=== PATIENT | female | born 1945 ===

== ENCOUNTER → 2018-12-11 | Outpatient (CLI) | payer OTHER, SELFPAY ==
[~2018-12-11] MED LIST: ASPI81CH PO; CALCA400CH PO; CALCAVITD; CHOL10002 PO; CO Q-10100 MG PO; Calcium 600 MG1 EACH PO; Coq-1030 MG PO; DOCU100 PO; Esgic Tablet1 EACH PO; HYDCHL12.5 PO; HYDCHL25 PO; IBUP600 PO; METO25ER PO; Mupirocin22 GM TOP; OMEPRAZOLE20 MG PO; Percocet 5-3251 EACH PO; TURMERIC 450-51 EACH PO; VITAMIN D31000 UNI2 PO
[2018-12-11 14:17] LABS: BASOPHILS ABSOLUTE AUTO 0.09 K/mm3 (0.00-0.23); BASOPHILS PERCENT AUTO 1 % (0-2); EOSINOPHILS PERCENT AUTO 2 % (0-6); Hematocrit 41.3 % (33.0-51.0); Hemoglobin 13.6 g/dL (11.5-16.0); IMMATURE GRAN ABSOLUTE AUTO 0.02 K/mm3 (0.00-0.10); IMMATURE GRAN PERCENT AUTO 0 % (0-1); LYMPHOCYTES PERCENT AUTO 23 % (21-46); MONOCYTES ABSOLUTE AUTO 0.92 K/mm3 (0.16-1.47); MONOCYTES PERCENT AUTO 11 % (4-13); Mean Corpuscular HGB 29.8 pg (26.0-34.0); Mean Corpuscular HGB Conc 32.9 g/dL (31.5-36.5); Mean Corpuscular Volume 90 fL (80-100); Mean Platelet Volume 11.2 fL (9.1-12.4); NEUTROPHILS PERCENT AUTO 62 % (41-73); Platelet Count 274 K/mm3 (150-400); RDW Coefficient Variation 14.1 % (11.7-14.2); RDW Standard Deviation 46.9 fL (35.1-46.3); Red Blood Cell Count 4.57 M/mm3 (3.80-5.20); White Blood Cell Count 8.53 K/mm3 (4.00-11.30)
== END | disposition home or self-care (01) ==
LOC: LAB EV 14:11 → LAB SHORT 14:11
PROVIDERS: Family Medicine
DX: K62.5 Hemorrhage of anus and rectum (principal)
CPT/HCPCS: 85025

== ENCOUNTER → 2018-12-16 | Outpatient (CLI) | payer OTHER ==
[2018-12-16 13:44] LABS: BASOPHILS ABSOLUTE AUTO 0.07 K/mm3 (0.00-0.23); BASOPHILS PERCENT AUTO 1 % (0-2); EOSINOPHILS ABSOLUTE AUTO 0.16 K/mm3 (0.00-0.68); EOSINOPHILS PERCENT AUTO 2 % (0-6); Hematocrit 33.1 % (33.0-51.0); Hemoglobin 11.2 g/dL (11.5-16.0); IMMATURE GRAN ABSOLUTE AUTO 0.03 K/mm3 (0.00-0.10); IMMATURE GRAN PERCENT AUTO 0 % (0-1); LYMPHOCYTES PERCENT AUTO 29 % (21-46); MONOCYTES ABSOLUTE AUTO 0.81 K/mm3 (0.16-1.47); MONOCYTES PERCENT AUTO 10 % (4-13); Mean Corpuscular HGB 30.2 pg (26.0-34.0); Mean Corpuscular HGB Conc 33.8 g/dL (31.5-36.5); Mean Corpuscular Volume 89 fL (80-100); Mean Platelet Volume 11.2 fL (9.1-12.4); NEUTROPHILS ABSOLUTE AUTO 4.88 K/mm3 (1.96-9.15); NEUTROPHILS PERCENT AUTO 59 % (41-73); Platelet Count 262 K/mm3 (150-400); RDW Coefficient Variation 14.6 % (11.7-14.2); RDW Standard Deviation 46.7 fL (35.1-46.3); Red Blood Cell Count 3.71 M/mm3 (3.80-5.20); White Blood Cell Count 8.35 K/mm3 (4.00-11.30)
[2018-12-16 13:58] LABS: Alanine Aminotransfer (ALT/SGP 19 U/L (12-78); Albumin, Blood 3.5 g/dL (3.4-5.0); Albumin/Globulin Ratio 1.2 (0.8-1.8); Alk Phos 85 U/L (40-126); Anion Gap 10 mmol/L (6-16); Aspartate Aminotrans (AST/SGOT 18 U/L (12-37); Bilirubin, Total 1.1 mg/dL (0.1-1.0); Blood Urea Nitrogen 27 mg/dL (8-24); Bun/Creatinine Ratio 30.7 (12.0-20.0); CO2, Blood 25 mmol/L (21-32); Calcium, Blood 8.6 mg/dL (8.5-10.1); Chloride, Blood 108 mmol/L (98-108); Creatinine, Blood 0.88 mg/dL (0.40-1.00); Glomerular Filtration Rate >60 (60-); Glucose, Blood 90 mg/dL (70-99); Potassium, Blood 3.4 mmol/L (3.5-5.5); Sodium, Blood 143 mmol/L (136-145); Total Protein, Blood 6.5 g/dL (6.4-8.2); Troponin I 0.019 ng/mL (0.000-0.040)
== END | disposition home or self-care (01) ==
LOC: LAB EV 13:38 → LAB SHORT 13:38
PROVIDERS: Physician Assistant
DX: R07.89 Other chest pain (principal); K62.5 Hemorrhage of anus and rectum
CPT/HCPCS: 80053; 83690; 84484; 85025

== ENCOUNTER → 2018-12-17 | Outpatient (CLI) | payer OTHER ==
[2018-12-17 11:01] LABS: BASOPHILS ABSOLUTE AUTO 0.07 K/mm3 (0.00-0.23); BASOPHILS PERCENT AUTO 1 % (0-2); EOSINOPHILS ABSOLUTE AUTO 0.21 K/mm3 (0.00-0.68); EOSINOPHILS PERCENT AUTO 3 % (0-6); Hematocrit 34.3 % (33.0-51.0); Hemoglobin 11.3 g/dL (11.5-16.0); IMMATURE GRAN ABSOLUTE AUTO 0.04 K/mm3 (0.00-0.10); IMMATURE GRAN PERCENT AUTO 1 % (0-1); LYMPHOCYTES ABSOLUTE AUTO 1.74 K/mm3 (0.84-5.20); LYMPHOCYTES PERCENT AUTO 24 % (21-46); MONOCYTES ABSOLUTE AUTO 0.79 K/mm3 (0.16-1.47); MONOCYTES PERCENT AUTO 11 % (4-13); Mean Corpuscular HGB 29.9 pg (26.0-34.0); Mean Corpuscular HGB Conc 32.9 g/dL (31.5-36.5); Mean Corpuscular Volume 91 fL (80-100); Mean Platelet Volume 11.4 fL (9.1-12.4); NEUTROPHILS ABSOLUTE AUTO 4.46 K/mm3 (1.96-9.15); NEUTROPHILS PERCENT AUTO 61 % (41-73); Platelet Count 276 K/mm3 (150-400); RDW Coefficient Variation 14.6 % (11.7-14.2); RDW Standard Deviation 48.6 fL (35.1-46.3); Red Blood Cell Count 3.78 M/mm3 (3.80-5.20); White Blood Cell Count 7.31 K/mm3 (4.00-11.30)
== END | disposition home or self-care (01) ==
LOC: LAB EV 10:55 → LAB SHORT 10:55
PROVIDERS: Physician Assistant
DX: K92.2 Gastrointestinal hemorrhage, unspecified (principal)
CPT/HCPCS: 85025

== ENCOUNTER → 2018-12-20 | Outpatient (CLI) | payer OTHER ==
[2018-12-20 16:33] LABS: BASOPHILS ABSOLUTE AUTO 0.07 K/mm3 (0.00-0.23); BASOPHILS PERCENT AUTO 1 % (0-2); EOSINOPHILS ABSOLUTE AUTO 0.21 K/mm3 (0.00-0.68); EOSINOPHILS PERCENT AUTO 2 % (0-6); Hematocrit 32.8 % (33.0-51.0); Hemoglobin 11.1 g/dL (11.5-16.0); IMMATURE GRAN ABSOLUTE AUTO 0.02 K/mm3 (0.00-0.10); IMMATURE GRAN PERCENT AUTO 0 % (0-1); LYMPHOCYTES ABSOLUTE AUTO 2.29 K/mm3 (0.84-5.20); LYMPHOCYTES PERCENT AUTO 27 % (21-46); MONOCYTES ABSOLUTE AUTO 0.86 K/mm3 (0.16-1.47); MONOCYTES PERCENT AUTO 10 % (4-13); Mean Corpuscular HGB 30.3 pg (26.0-34.0); Mean Corpuscular HGB Conc 33.8 g/dL (31.5-36.5); Mean Corpuscular Volume 90 fL (80-100); Mean Platelet Volume 10.9 fL (9.1-12.4); NEUTROPHILS ABSOLUTE AUTO 5.18 K/mm3 (1.96-9.15); NEUTROPHILS PERCENT AUTO 60 % (41-73); Platelet Count 294 K/mm3 (150-400); RDW Coefficient Variation 14.6 % (11.7-14.2); RDW Standard Deviation 47.3 fL (35.1-46.3); Red Blood Cell Count 3.66 M/mm3 (3.80-5.20); White Blood Cell Count 8.63 K/mm3 (4.00-11.30)
== END | disposition home or self-care (01) ==
LOC: LAB EV 16:29 → LAB SHORT 16:29
PROVIDERS: Physician Assistant
DX: K92.2 Gastrointestinal hemorrhage, unspecified (principal)
CPT/HCPCS: 85025

== ENCOUNTER 2019-01-16 10:24 | Day surgery (SDC) | payer OTHER ==
[~2019-01-16] VITALS: Ht 165.1 cm; Wt 74.9 kg
== END 2019-01-16 12:35 | disposition home or self-care (01) ==
LOC: ORSCSDS 10:24
PROVIDERS: Surgery
PROC: 0DJD8ZZ Inspection of Lower Intestinal Tract, Via Natural or Artificial Opening Endoscopic (ICD-10-PCS; principal; 2019-01-16 12:00)
DX: K62.5 Hemorrhage of anus and rectum (principal); R10.84 Generalized abdominal pain; K57.30 Diverticulosis of large intestine without perforation or abscess without bleeding; K64.8 Other hemorrhoids; K44.9 Diaphragmatic hernia without obstruction or gangrene; I10 Essential (primary) hypertension; I25.10 Atherosclerotic heart disease of native coronary artery without angina pectoris; Z79.899 Other long term (current) drug therapy
CPT/HCPCS: J2405; J2704; J7120

== ENCOUNTER → 2021-06-09 | Outpatient (CLI) | payer OTHER | LOC: LAB SHORT 15:28 | DX: R30.9 Painful micturition, unspecified (principal) | CPT/HCPCS: 87086 ==

== ENCOUNTER 2022-01-18 15:33 | Emergency (ER) | payer OTHER ==
[~2022-01-18] VITALS: Ht 165.1 cm; Wt 78.9 kg
== END 2022-01-18 17:00 | disposition home or self-care (01) ==
LOC: ER 15:33
DX: S29.011A Strain of muscle and tendon of front wall of thorax, initial encounter (principal); I10 Essential (primary) hypertension; Z91.040 Latex allergy status; Z88.2 Allergy status to sulfonamides; Z79.899 Other long term (current) drug therapy; X50.9XXA Other and unspecified overexertion or strenuous movements or postures, initial encounter
CPT/HCPCS: 71046; 99284-25

== ENCOUNTER 2022-08-17 08:54 | Day surgery (SDC) | payer OTHER ==
[~2022-08-17] VITALS: Ht 165.1 cm; Wt 77.3 kg
[2022-08-17] VITALS (12 sets, daily range): BP systolic 111–202; BP diastolic 79–101
[~2022-08-17 08:54] MED LIST changes: +CARV6.25 PO; +FLUO10 PO; +LOSA50 PO
--- NOTE | 2022-08-17 10:06 | NUR ---
Ambulatory in Day Surgery History, Chart, Medications and Allergies reviewed before start of procedure. Lungs clear T/O to Auscultation. Patient confirms NPO status and agrees with scheduled surgery. Pre-Op teaching done. Pt verbalizes understanding. Patient States Post-Procedure ride home has been arranged. PT BELONGINGS PLACED UNDERNEATH [facility] FOR SAFEKEEPING.
--- NOTE | 2022-08-17 10:55 | NUR ---
08/17/22 1055 Ginny Rajput [address] KWON, SEE ANESTHESIA RECORDS.
--- NOTE | 2022-08-17 12:24 | NUR ---
DR KWON AWARE OF ELEVATED BP HE STATES ONCE PT AWAKE AND TALKING CALL HIM IF IT CONTINUES TO BE ELEVATED ABOVE HER BASELINE
--- NOTE | 2022-08-17 12:35 | NUR ---
DR KWON AWARE OF BP AND HE WOULD LIKE HER TO TAKE HER BP MEDS WHEN SHE IS HOME PT HAS NO COMPLAINTS
--- NOTE | 2022-08-17 14:17 | NUR ---
Patient up to Ambulate independently. Gait steady. Discharge instructions reviewed with patient. Patient verbalizes understanding. Copy given to patient to take home. Discharged via wheelchair to private car for ride home WITH FRIEND
== END 2022-08-18 22:38 | disposition home or self-care (01) ==
LOC: ORSCMMR 08:54 → ORD 10:45 → ORSCMMR 08-18 22:38
PROVIDERS: Surgery
PROC: 0DBK8ZX Excision of Ascending Colon, Via Natural or Artificial Opening Endoscopic, Diagnostic (ICD-10-PCS; principal; 2022-08-17 10:45)
PROC: 06BY0ZC Excision of Hemorrhoidal Plexus, Open Approach (ICD-10-PCS; principal; 2022-08-17 10:45)
DX: K62.5 Hemorrhage of anus and rectum (principal); K64.2 Third degree hemorrhoids; D12.2 Benign neoplasm of ascending colon; K57.30 Diverticulosis of large intestine without perforation or abscess without bleeding; I10 Essential (primary) hypertension; Z79.899 Other long term (current) drug therapy
CPT/HCPCS: 88304; 88305; A9270; J1100; J1885; J2405; J2704; J3010; J7120

== ENCOUNTER 2025-01-27 15:44 | Inpatient (IN) | payer OTHER ==
[~2025-01-27] VITALS: Ht 165.1 cm; Wt 80.6 kg
[2025-01-27] VITALS (12 sets, daily range): BP systolic 122–143; BP diastolic 62–129
[2025-01-27 16:21] LABS: BASOPHILS ABSOLUTE AUTO 0.11 K/mm3 (0.00-0.23); BASOPHILS PERCENT AUTO 1 % (0-2); EOSINOPHILS ABSOLUTE AUTO 0.24 K/mm3 (0.00-0.68); EOSINOPHILS PERCENT AUTO 3 % (0-6); Hematocrit 40.7 % (33.0-51.0); Hemoglobin 13.7 g/dL (11.5-16.0); IMMATURE GRAN ABSOLUTE AUTO 0.04 K/mm3 (0.00-0.10); IMMATURE GRAN PERCENT AUTO 0 % (0-1); LYMPHOCYTES ABSOLUTE AUTO 2.12 K/mm3 (0.84-5.20); LYMPHOCYTES PERCENT AUTO 22 % (21-46); MONOCYTES ABSOLUTE AUTO 0.99 K/mm3 (0.16-1.47); MONOCYTES PERCENT AUTO 10 % (4-13); Mean Corpuscular HGB Conc 33.7 g/dL (31.5-36.5); Mean Corpuscular Volume 85 fL (80-100); NEUTROPHILS ABSOLUTE AUTO 6.21 K/mm3 (1.96-9.15); NEUTROPHILS PERCENT AUTO 64 % (41-73); NRBC ABSOLUTE 0.00 K/mm3 (0.00-0.02); NRBC Auto 0.0 /100 WBC (0.0-0.2); Platelet Count 329 K/mm3 (150-400); RDW Coefficient Variation 15.1 % (11.7-14.2); RDW Standard Deviation 46.9 fL (35.1-46.3)
[2025-01-27 16:42] LABS: Alanine Aminotransfer (ALT/SGP 18.0 U/L (12-78); Albumin, Blood 3.5 g/dL (3.4-5.0); Albumin/Globulin Ratio 1.0 (0.8-1.8); Anion Gap 7.0 mmol/L (3-11); Aspartate Aminotrans (AST/SGOT 15.0 U/L (12-37); Bilirubin, Total 1.0 mg/dL (0.1-1.0); Blood Urea Nitrogen 17.0 mg/dL (8-24); CO2, Blood 28.0 mmol/L (21-32); Calcium, Blood 8.9 mg/dL (8.5-10.1); Chloride, Blood 106.0 mmol/L (98-108); Creatinine, Blood 0.82 mg/dL (0.40-1.00); Globulin, Blood 3.4 g/dL (2.2-4.0); Glucose, Blood 114.0 mg/dL (70-99); Potassium, Blood 3.9 mmol/L (3.5-5.5); Sodium, Blood 137.0 mmol/L (136-145); Total Protein, Blood 6.9 g/dL (6.4-8.2)
[2025-01-27] MEDS ORDERED: NiCARdipine HCL 50 MG in NS 250 ML IV SCH (18:35)
[2025-01-27 19:16] LABS: Prothrombin Time Results 11.9 Sec (9.7-11.5)
[2025-01-27] MEDS ORDERED: Labetalol HCL 5 MG/ML 4ML Injection (Single Dose) IV PRN (21:10)
[2025-01-28] VITALS (47 sets, daily range): BP systolic 104–156; BP diastolic 46–96
[2025-01-28 03:44] LABS: BASOPHILS ABSOLUTE AUTO 0.11 K/mm3 (0.00-0.23); BASOPHILS PERCENT AUTO 1 % (0-2); EOSINOPHILS ABSOLUTE AUTO 0.31 K/mm3 (0.00-0.68); EOSINOPHILS PERCENT AUTO 3 % (0-6); Hematocrit 43.3 % (33.0-51.0); Hemoglobin 14.2 g/dL (11.5-16.0); IMMATURE GRAN ABSOLUTE AUTO 0.07 K/mm3 (0.00-0.10); IMMATURE GRAN PERCENT AUTO 1 % (0-1); LYMPHOCYTES ABSOLUTE AUTO 2.27 K/mm3 (0.84-5.20); LYMPHOCYTES PERCENT AUTO 18 % (21-46); MONOCYTES ABSOLUTE AUTO 1.43 K/mm3 (0.16-1.47); MONOCYTES PERCENT AUTO 11 % (4-13); Mean Corpuscular HGB Conc 32.8 g/dL (31.5-36.5); Mean Corpuscular Volume 86 fL (80-100); NEUTROPHILS ABSOLUTE AUTO 8.45 K/mm3 (1.96-9.15); NEUTROPHILS PERCENT AUTO 67 % (41-73); NRBC ABSOLUTE 0.00 K/mm3 (0.00-0.02); NRBC Auto 0.0 /100 WBC (0.0-0.2); Platelet Count 345 K/mm3 (150-400); RDW Coefficient Variation 15.4 % (11.7-14.2); RDW Standard Deviation 48.7 fL (35.1-46.3)
[2025-01-28 04:09] LABS: Alanine Aminotransfer (ALT/SGP 18.0 U/L (12-78); Albumin, Blood 3.5 g/dL (3.4-5.0); Albumin/Globulin Ratio 1.1 (0.8-1.8); Anion Gap 10.0 mmol/L (3-11); Aspartate Aminotrans (AST/SGOT 13.0 U/L (12-37); Bilirubin, Total 0.9 mg/dL (0.1-1.0); Blood Urea Nitrogen 23.0 mg/dL (8-24); CO2, Blood 25.0 mmol/L (21-32); Calcium, Blood 9.0 mg/dL (8.5-10.1); Chloride, Blood 108.0 mmol/L (98-108); Creatinine, Blood 0.82 mg/dL (0.40-1.00); Globulin, Blood 3.1 g/dL (2.2-4.0); Glucose, Blood 138.0 mg/dL (70-99); Potassium, Blood 3.7 mmol/L (3.5-5.5); Sodium, Blood 139.0 mmol/L (136-145); Total Protein, Blood 6.6 g/dL (6.4-8.2)
--- NOTE | 2025-01-28 05:56 | NUR ---
SHIFT SUMMARY PT HAS TOLERATED NIGHT WELL SINCE BEING ADMITTED TO ICU WITH NO SIGNIFICANT EVENTS OVERNIGHT. PT REMAINS ALERT AND ORIENTED X 4 AND ABLE TO MOVE ALL EXTREMETIES. PT IS CURRENTLY RESTING COMFORTABLY IN ROOM. CALL LIGHT WITHIN REACH. WILL CONTINUE TO MONITOR UNTIL REPORT PASSED TO DAY SHIFT TEAM.
--- NOTE | 2025-01-28 14:59 | NUR ---
PT A/O X4, NEURO INTACT EXCEPT GAIT IS STILL SLIGHTLY WEAK. DIFFICULT TO PIN POINT WHAT IS WEAK WITH GAIT BECAUSE SHE IS ABLE TO MOVE BOTH EXTREMITIES ON COMMAND AND THEY ARE EQUAL. USING CALL LIGHT APPROPRIATELY. BP HAS BEEN WELL CONTROLED WITH PO MEDS. HAS BEEN OFF NICARDIPINE GTT SINCE 0800. EATING MEALS WITHOUT DIFFICULTY. NO SIGN OF DISTRESS. REPORT GIVEN TO FREDDY PINZON WHO WILL ASSUME CARE.
--- NOTE | 2025-01-28 20:40 | NUR ---
ASSUMPTION OF CARE/TRANSFER: ASSUMED CARE AT START OF SHIFT (1899). REPORT RECEIVED FROM DAY SHIFT RN. PT OS DOING WELL AMD RESTING IN BED. PT IS ALERT AND FOLLOWING COMMANDS. PT DENIES ANY PAIN, CP, OR SOB AT THIS TIME. LUNG SOUNDS ARE CLEAR AND EQUAL BILATERALLY, ON RA WITH SPO2 >95%. SINUS RYTHM, SBP: 120-130'S MAP >65 HR: 70'S. IV: PERIPHERAL IN LAC AND L WRIST. PT IS ABLE TO AMBULATE AND USE BEDSIDE COMMODE VIA 1-PERSON ASSIST. LINES AND CORDS PLACED OUT OF REACH, CALL LIGHT PLACED WITHIN REACH. PT TRANSFERED FROM ICU 1 TO PCU 16 @ 2039. REPORT GIVEN TO QA REVIEWER. PT TRANSPORTED TO PCU VIA WHEEL CHAIR, PT TRANSFERRED TO PCU BED VIA STAND AND PIVOT. ALL PT BELONGS, MEDICATIONS, AND CHART WENT WITH PT TO PCU.
[2025-01-29] VITALS (10 sets, daily range): BP systolic 142–197; BP diastolic 70–98
[2025-01-29 03:57] LABS: BASOPHILS ABSOLUTE AUTO 0.07 K/mm3 (0.00-0.23); BASOPHILS PERCENT AUTO 1 % (0-2); EOSINOPHILS ABSOLUTE AUTO 0.38 K/mm3 (0.00-0.68); EOSINOPHILS PERCENT AUTO 4 % (0-6); Hematocrit 39.6 % (33.0-51.0); Hemoglobin 12.8 g/dL (11.5-16.0); IMMATURE GRAN ABSOLUTE AUTO 0.03 K/mm3 (0.00-0.10); IMMATURE GRAN PERCENT AUTO 0 % (0-1); LYMPHOCYTES ABSOLUTE AUTO 2.68 K/mm3 (0.84-5.20); LYMPHOCYTES PERCENT AUTO 25 % (21-46); MONOCYTES ABSOLUTE AUTO 1.44 K/mm3 (0.16-1.47); MONOCYTES PERCENT AUTO 13 % (4-13); Mean Corpuscular HGB Conc 32.3 g/dL (31.5-36.5); Mean Corpuscular Volume 86 fL (80-100); NEUTROPHILS ABSOLUTE AUTO 6.15 K/mm3 (1.96-9.15); NEUTROPHILS PERCENT AUTO 57 % (41-73); NRBC ABSOLUTE 0.00 K/mm3 (0.00-0.02); NRBC Auto 0.0 /100 WBC (0.0-0.2); Platelet Count 311 K/mm3 (150-400); RDW Coefficient Variation 15.5 % (11.7-14.2); RDW Standard Deviation 48.7 fL (35.1-46.3)
[2025-01-29 04:14] LABS: Anion Gap 7.0 mmol/L (3-11); Blood Urea Nitrogen 23.0 mg/dL (8-24); CO2, Blood 29.0 mmol/L (21-32); Calcium, Blood 8.7 mg/dL (8.5-10.1); Chloride, Blood 107.0 mmol/L (98-108); Creatinine, Blood 0.9 mg/dL (0.40-1.00); Glucose, Blood 120.0 mg/dL (70-99); Potassium, Blood 3.8 mmol/L (3.5-5.5); Sodium, Blood 139.0 mmol/L (136-145)
--- NOTE | 2025-01-29 06:51 | NUR ---
SHIFT SUMMARY PATIENT ALERT AND ORIENTED X4. NO NEURO DEFICITS NOTED WITH STRENGTH EQUAL. PATIENT NOTED TO HAVE APNEA WHILE SLEEPING, PLACED ON 2 LITERS OXYGEN FOR SLEEP TO MAINTAIN SPO2 >90%. VITAL SIGNS STABLE. WILL CONTINUE TO MONITOR. CALL LIGHT WITHIN REACH.
--- NOTE | 2025-01-29 09:41 | NUR ---
CHANGE IN STATUS: PATIENT STATED, "I FEEL DIFFERENT TODAY, KIND OF OFF, I AM HAING A HARD TIME FINDING WORDS. IT FEELS LIKE I AM NOT SWALLOWING LIKE I DID BEFORE. THINGS FEEL LIKE THEY ARE GOING DOWN MY THROAT SLOWER." "I GET DIZZY WITH MOVEMENT, TURNING MY HEAD MAKES IT WORSE." PERRLA, SENSORIUM INTACT RIGHT AND LEFT FROM HEAD TO TOE, DENIES PAIN, NO NEW NUMBNESS, OR TINGLING. MD GORDILLO NOTIFIED AT APPROX 0909, STAT CT ORDERED. PT AND CHARGE NURSE GAYLE NOTIFIED OF NEW ORDER. PT TO CT AT APPROX 0988
--- NOTE | 2025-01-29 18:30 | NUR ---
CALL TO PROVIDER AT APPROX 1800: SBP INCREASED FROM 140'S TO 180'S-190'S. EVENING CARVEDILOL GIVEN. MD SALDANA NOTIFIED: RECHECK BP IN 1 HR, IF SBP >160 GIVE PRN BP MEDICATION. MD SALDANA TO ADD PRN BP ORDER TO KEEP SBP AT GOAL OF <160.
--- NOTE | 2025-01-29 19:06 | NUR ---
SHIFT SUMMARY: A/O X4, PLEASANT AND COOPERATIVE WITH CARE, ABLE TO COMMUNICATE NEEDS, USES CALL LIGHT APPROPRIATELY. NIH SCORE OF 1, REPEAT CT PERFORMED THIS MORNING, SEE CHANGE IN STATUS NOTE, NO ACUTE CHANGES NOTED. MD GORDILLO AT BEDSIDE THIS AM. INCREASE IN SBP FROM 140 S TO 180 S/190 S, SEE CALL TO PROVIDER AT APPROX 1800 NOTE. PT REPORTED SENSATION OF FOOD BEING SLOW TO GO DOWN, ST EVALUATED 01/28, NOTIFIED OF PT REPORT, REEVALUATED 01/29 W/NO NEW RECOMMENDATIONS. PT AND OT WORKED WITH PT TODAY. PLAN TO DC 01/30 PENDING NO CHANGES. PT IN BED, ORIENTED TO CALL LIGHT.
[2025-01-29] MEDS ORDERED: Labetalol HCL 5 MG/ML 4ML Injection (Single Dose) IV PRN (22:00)
[2025-01-30 03:38] VITALS: BP 144/86
[2025-01-30 04:29] LABS: BASOPHILS ABSOLUTE AUTO 0.12 K/mm3 (0.00-0.23); BASOPHILS PERCENT AUTO 1 % (0-2); EOSINOPHILS ABSOLUTE AUTO 0.34 K/mm3 (0.00-0.68); EOSINOPHILS PERCENT AUTO 3 % (0-6); Hematocrit 40.3 % (33.0-51.0); Hemoglobin 13.3 g/dL (11.5-16.0); IMMATURE GRAN ABSOLUTE AUTO 0.04 K/mm3 (0.00-0.10); IMMATURE GRAN PERCENT AUTO 0 % (0-1); LYMPHOCYTES ABSOLUTE AUTO 2.58 K/mm3 (0.84-5.20); LYMPHOCYTES PERCENT AUTO 25 % (21-46); MONOCYTES ABSOLUTE AUTO 1.29 K/mm3 (0.16-1.47); MONOCYTES PERCENT AUTO 13 % (4-13); Mean Corpuscular HGB Conc 33.0 g/dL (31.5-36.5); Mean Corpuscular Volume 86 fL (80-100); NEUTROPHILS ABSOLUTE AUTO 5.82 K/mm3 (1.96-9.15); NEUTROPHILS PERCENT AUTO 57 % (41-73); NRBC ABSOLUTE 0.00 K/mm3 (0.00-0.02); NRBC Auto 0.0 /100 WBC (0.0-0.2); Platelet Count 311 K/mm3 (150-400); RDW Coefficient Variation 15.5 % (11.7-14.2); RDW Standard Deviation 49.1 fL (35.1-46.3)
[2025-01-30 04:58] LABS: Alanine Aminotransfer (ALT/SGP 19.0 U/L (12-78); Albumin, Blood 3.3 g/dL (3.4-5.0); Albumin/Globulin Ratio 1.0 (0.8-1.8); Anion Gap 7.0 mmol/L (3-11); Aspartate Aminotrans (AST/SGOT 13.0 U/L (12-37); Bilirubin, Total 1.0 mg/dL (0.1-1.0); Blood Urea Nitrogen 22.0 mg/dL (8-24); CO2, Blood 28.0 mmol/L (21-32); Calcium, Blood 8.8 mg/dL (8.5-10.1); Chloride, Blood 106.0 mmol/L (98-108); Creatinine, Blood 0.78 mg/dL (0.40-1.00); Globulin, Blood 3.2 g/dL (2.2-4.0); Glucose, Blood 114.0 mg/dL (70-99); Potassium, Blood 3.8 mmol/L (3.5-5.5); Sodium, Blood 137.0 mmol/L (136-145); Total Protein, Blood 6.5 g/dL (6.4-8.2)
--- NOTE | 2025-01-30 06:26 | NUR ---
SHIFT SUMMARY PATIENT ALERT AND ORIENTED X4. HAD NO COMPLAINTS OF PAIN OR SHORTNESS OF BREATH. NO NEURO CHANGES NOTED. BLOOD PRESSURE CONTINUES TO COME DOWN. ON ROOM AIR WITH SPO2 >90%. NO ACUTE ISSUES NOTED OVERNIGHT. WILL CONTINUE TO MONITOR. CALL LIGHT WITHIN REACH.
[2025-01-30 07:46] VITALS: BP 167/86
[2025-01-30 12:24] VITALS: BP 157/80
[2025-01-30 15:56] VITALS: BP 151/88
--- NOTE | 2025-01-30 17:30 | NUR ---
PT IS A&Ox4 AND ABLE TO MAKE NEEDS KNOWN. SHE IS ON RA W/O2 SATS > 92%. SHE IS A SBA W/FWW FOR AMBULATION. BP'S ARE IMPROVED TODAY. NO NEEDS OR CONCERNS NOTED @ THIS TIME. BED IN LOW POSITION, CALL LIGHT AND PERSONAL BELONGINGS IN REACH.
[2025-01-30 19:24] VITALS: BP 155/76
[2025-01-30] MEDS ORDERED: TROLAMINE SALICYLATE 10% CREAM 141 GM TUBE TOP PRN (20:35)
[2025-01-31] VITALS (8 sets, daily range): BP systolic 150–189; BP diastolic 75–93
--- NOTE | 2025-01-31 17:32 | NUR ---
PT IS A&Ox4 AND ABLE TO MAKE NEEDS KNOWN. SHE IS ON RA W/O2 SATS > 92%. SHE IS INDEPENDENT W/FWW FOR AMBULATION. BP MEDS ADJUSTED THIS SHIFT. NO OTHER NEEDS OR CONCERNS NOTED @ THIS TIME. BED IN LOW POSITION, CALL LIGHT AND PERSONAL BELONGINGS IN REACH.
[2025-02-01 00:07] VITALS: BP 176/73
[2025-02-01 04:17] VITALS: BP 172/75
[2025-02-01 05:10] VITALS: BP 149/68
--- NOTE | 2025-02-01 05:20 | NUR ---
SHIFT SUMMARY: PT IS A&OX4, [place]. HTN, SYS >160 ON RA. PRN LABETALOL GIVEN FOR BP OF 172/75. SR 70'S-80'S. DENIES PAIN. PT C/O RESTLESS LEGS, THAT IS KEEPING HER AWAKE. PT WAS NOT ABLE TO TOLERATE HER SCD'S. TOLERATING A REGULAR DIET. SBA WITH FWW TO BR. PT IS MOSTLY INCONTINENT OF URINE, PULL-UP IN PLACE AND CHANGED NEEDED. NO BM THIS SHIFT. PT IS FREQUENTLY REPOSITIONING HERSELF IN THE BED. BED IN LOWEST POSITION, CALL LIGHT WITHIN REACH. CALLS APPROPRIATELY AND IS ABLE TO ADVOCATE NEEDS EFFECTIVELY. CALLED REPORT TO MEDICAL FLOOR NURSE AT 0455. TRANSFERRED PT TO ROOM 363 VIA WHEELCHAIR AROUND 0520, WITH ALL BELONGINGS IN HER POSSESSION.
[2025-02-01 05:33] VITALS: BP 139/81
--- NOTE | 2025-02-01 06:08 | NUR ---
TRANSFER SUMMARY PT ARRIVES FROM PCU TO RM 363 VIA WHEELCHAIR, A&OX4, CONVERSANT, PLEASANT. DOES NOTE 5/10 R POSTERIOR CANCHOLA ON ARRIVAL, BUT DECLINES ANALGESIA. BP IMPROVED FROM 172/75 WHEN TOP ICER MEDICATED PRIOR TO ARRIVAL DOWN TO 139/81 UPON ARRIVAL. TELE: NSR. PT DECLINES SCDs. PATENT IV IN RFA. BELONGINGS BROUGHT WITH PT FROM PCU TO BEDSIDE. ORIENTED TO ROOM. CALL LIGHT WITHIN REACH. FWW AT BEDSIDE. PT INDEPENDENT IN ROOM WITH FWW. PARTIALLY CONTINENT/INCONTINENT WITH NEW PULL-UP BRIEFS AVAILABLE IN RESTROOM. DOES REPORT LIVING REMOTE IN [place] AND HAVING ONLY A LANDLINE. WE DISCUSSED REVIEWING OPTIONS FOR EMERGENCY CALL LIGHTS AT TIME OF DISPOSITION.
[2025-02-01 07:40] VITALS: BP 143/71
[2025-02-01 08:31] LABS: BASOPHILS ABSOLUTE AUTO 0.12 K/mm3 (0.00-0.23); BASOPHILS PERCENT AUTO 1 % (0-2); EOSINOPHILS ABSOLUTE AUTO 0.33 K/mm3 (0.00-0.68); EOSINOPHILS PERCENT AUTO 3 % (0-6); Hematocrit 41.5 % (33.0-51.0); Hemoglobin 13.9 g/dL (11.5-16.0); IMMATURE GRAN ABSOLUTE AUTO 0.03 K/mm3 (0.00-0.10); IMMATURE GRAN PERCENT AUTO 0 % (0-1); LYMPHOCYTES ABSOLUTE AUTO 2.13 K/mm3 (0.84-5.20); LYMPHOCYTES PERCENT AUTO 22 % (21-46); MONOCYTES ABSOLUTE AUTO 1.12 K/mm3 (0.16-1.47); MONOCYTES PERCENT AUTO 12 % (4-13); Mean Corpuscular HGB Conc 33.5 g/dL (31.5-36.5); Mean Corpuscular Volume 86 fL (80-100); NEUTROPHILS ABSOLUTE AUTO 5.92 K/mm3 (1.96-9.15); NEUTROPHILS PERCENT AUTO 61 % (41-73); NRBC ABSOLUTE 0.00 K/mm3 (0.00-0.02); NRBC Auto 0.0 /100 WBC (0.0-0.2); Platelet Count 316 K/mm3 (150-400); RDW Coefficient Variation 15.3 % (11.7-14.2); RDW Standard Deviation 48.4 fL (35.1-46.3)
[2025-02-01 08:59] LABS: Alanine Aminotransfer (ALT/SGP 19.0 U/L (12-78); Albumin, Blood 3.3 g/dL (3.4-5.0); Albumin/Globulin Ratio 1.0 (0.8-1.8); Anion Gap 9.0 mmol/L (3-11); Aspartate Aminotrans (AST/SGOT 13.0 U/L (12-37); Bilirubin, Total 0.9 mg/dL (0.1-1.0); Blood Urea Nitrogen 21.0 mg/dL (8-24); CO2, Blood 26.0 mmol/L (21-32); Calcium, Blood 8.9 mg/dL (8.5-10.1); Chloride, Blood 107.0 mmol/L (98-108); Creatinine, Blood 0.74 mg/dL (0.40-1.00); Globulin, Blood 3.3 g/dL (2.2-4.0); Glucose, Blood 121.0 mg/dL (70-99); Potassium, Blood 4.1 mmol/L (3.5-5.5); Sodium, Blood 138.0 mmol/L (136-145); Total Protein, Blood 6.6 g/dL (6.4-8.2)
[2025-02-01 12:44] VITALS: BP 143/77
[2025-02-01] MEDS ORDERED: Carvedilol12.5 MG PO (14:26)
[2025-02-01] MEDS ORDERED: AMLO10 PO (14:27)
[2025-02-01] MEDS ORDERED: LISI20 PO (14:28)
--- NOTE | 2025-02-01 15:54 | NUR ---
DISCHARGE SUMMARY: PT BELONGINGS COLLECTED AND BAGGED FOR PT. WALKER GIVEN TO PT TO GO HOME WITH. PT EDUCTION COMPLETED AN PT VERABALIZED UNDERSTANDING. PT RIDE TO PICK PT UP AT 1630. PT INSISTED ON WAITING OUTSIDE FOR PT AT 1550. PT INFORMED THAT SHE CAN WAIT IN HER ROOM UNTIL HER RIDE IS HER AND SHE DECLINED. PT INFORMED HER ROOM WILL BE CLENED AND SHE WILL BE DISCHARGED AND ASKED IF SHE IS SURE SHE WANTS TO WAIT. PT STILL INSISTED ON LEAVING. PEDRITO CHOWDARY WALKED WITH PT DOWNSTAIRS TO WHERE SHE WILL WAIT.
== END 2025-02-01 15:54 | disposition home health service (06) | DRG 65 ==
LOC: ER 15:44 → ICUE 15:45 → PCU 01-28 14:31 → ICUE 01-28 15:14 → PCU 01-28 20:42 → MEDS 02-01 05:26
PROVIDERS: Family Medicine; Hospitalist; Nurse Practitioner Acute Care; Student in an Organized Health Care Education/Training Program; ADMIT Internal Medicine
DX: I62.9 Nontraumatic intracranial hemorrhage, unspecified (principal); I16.1 Hypertensive emergency; I42.1 Obstructive hypertrophic cardiomyopathy; Q89.89 Other specified congenital malformations; I10 Essential (primary) hypertension; I48.91 Unspecified atrial fibrillation; Z98.890 Other specified postprocedural states; Z79.899 Other long term (current) drug therapy; Z88.2 Allergy status to sulfonamides; Z91.040 Latex allergy status
CPT/HCPCS: 36415; 70450; 70496; 70498; 80048; 80053; 85025; 85610; 92610; 93005; 93010; 93306; 96365-59; 96366; 96366-59; 96376; 97110; 97112; 97116; 97162; 97165; 97530; 97535; 99285-25; A9270; G0378; J7050; Q9967